=== PATIENT | male | born 1970 | race Caucasian/White ===

== ENCOUNTER 2016-09-26 20:44 | Emergency (ER) | payer SELFPAY ==
[2016-09-26 21:05] VITALS: BP 140/95
[2016-09-26] MEDS ORDERED: diPHENhydraMINE PO* 25 MG PO ONE (21:13)
--- NOTE | 2016-09-26 21:23 | UC ---
Skin Complaint HPI - HPI Summary HPI Summary: pt c/o o "insect bite" on right dorsal side of right wrist. Pt reports being outside this morning nd was beign bit by "black flies" . Pt noted that he had a bite on his right mid, wrist dorsal aspect that he "scratched" and made self inflicted abrasion. Pt then noticed that over several hours that his right wrist began to swell and that he has serous discharge from self inflicted abrasion with limited ROM secondary to swelling that is ~ 3 cm from insect bite. Pt denies angioedema or difficulty breathing. Pt has self inflicted abrasion that is ~ 1 cm in diameter. - History of Current Complaint Chief Complaint: UCSkin Time Seen by Provider: 09/26/16 21:05 Stated Complaint: insect bite/allergic reaction Hx Obtained From: Patient Onset/Duration: Gradual Onset, Lasting Hours Skin Exposure Onset/Duration: Hours Ago Timing: Constant Onset Severity: Mild Current Severity: Moderate Location: Discrete - righ twrist Character: Swelling Aggravating: Touch Alleviating: Unknown Associated Signs & Symptoms: Positive: Drainage - serous Related History: Insect Bite/Sting - black fly - Allergy/Home Medications Allergies/Adverse Reactions: Allergies Allergy/AdvReac Type Severity Reaction Status Date / Time Epinephrine Allergy had a Verified 09/26/16 21:06 heart attack after recieving for a bee sting Review of Systems Constitutional: Negative Skin: Other - swelling, abrasion, serous discharge Eyes: Negative ENT: Negative Respiratory: Negative Cardiovascular: Negative Gastrointestinal: Negative Genitourinary: Negative Motor: Decreased ROM - right wrist Neurovascular: Negative Musculoskeletal: Decreased ROM - right wrist, Edema Neurological: Negative Psychological: Negative All Other Systems Reviewed And Are Negative: Yes PMH/Surg Hx/FS Hx/Imm Hx Previously Healthy: Yes Cardiovascular History Of: Reports: Cardiac Disorders - [place] AGE 36 AFTER RECIEVING THE WRON DOSE OF EPE FOR BEE STING, Hypertension - DOES NOT TAKE HIS MED - Surgical History Surgical History: Yes Surgery Procedure, Year, and Place: RIGHT TOE FX WITH HARDWARE. SHOULDER SURGERY , APPENDECTOMY - Family History Known Family History: Positive: Other - positive [facility] for insect bite - Social History Alcohol Use: Occasionally Substance Use Type: None Smoking Status (MU): Current Every Day Smoker Type: Cigarettes Amount Used/How Often: 1 PPD Length of Time of Smoking/Using Tobacco: 29 YRS. Have You Smoked in the Last Year: Yes Household Exposure Type: Cigarettes Physical Exam Triage Information Reviewed: Yes Appearance: Well-Appearing Vital Signs: Initial Vital Signs Temp 97.9 F 09/26/16 20:58 Pulse 69 09/26/16 20:58 Resp 16 09/26/16 20:58 BP 140/95 09/26/16 20:58 Pulse Ox 97 09/26/16 20:58 Vital Signs Reviewed: Yes Eye Exam: Normal ENT Exam: Normal Neck exam: Normal Respiratory Exam: Normal Cardiovascular Exam: Normal Musculoskeletal Exam: Normal Musculoskeletal: Positive: ROM Limited @ - right wrist, Edema @ - right wrist, ~ 3 cm from insect bit that is 3 cm X 3 cm length Neurological Exam: Normal Psychological Exam: Normal Skin Exam: Other - ~ 1 cm self inflicted abrasion with scant amount of serous discharge Course/Dx - Differential Diagnoses - Skin Complaint Differential Diagnoses: Allergic Reaction, Cellulitis - Diagnoses Provider Diagnoses: insect bite allergic reaction. cellulitis Discharge - Discharge Plan Condition: Stable Disposition: HOME Prescriptions: Loratadine [Claritin 10 MG CAP] 10 mg PO DAILY #7 cap Sulfamethox/Trimethoprim DS* [Bactrim DS 800/160 TAB*] 1 tab PO BID #14 tab Patient Education Materials: Cellulitis (ED), Insect Bite or Sting (ED) Referrals: [facility] [Outside] No Primary Care Phys,NOPCP [Primary Care Provider] - If Needed
[2016-09-26] MEDS ORDERED: Sulfamethox/Trimethoprim DS 800/160* TAB PO ONE (21:29)
[2016-09-27] MEDS ORDERED: Sulfamethox/Trimethoprim DS 800/160* TAB PO ONE (21:14)
== END 2016-09-26 21:37 | disposition home or self-care (01) ==
LOC: UCCORT 20:44
DX: S60.861A Insect bite (nonvenomous) of right wrist, initial encounter (principal); L03.113 Cellulitis of right upper limb; W57.XXXA Bitten or stung by nonvenomous insect and other nonvenomous arthropods, initial encounter; Y93.9 Activity, unspecified; Y92.9 Unspecified place or not applicable; Z88.8 Allergy status to other drugs, medicaments and biological substances; I10 Essential (primary) hypertension; F17.210 Nicotine dependence, cigarettes, uncomplicated
CPT/HCPCS: 99202; A9270-GY; G0463

== ENCOUNTER 2017-08-04 21:18 | Emergency (ER) | payer BC, OTHER ==
[2017-08-04 21:45] VITALS: BP 128/81
[2017-08-04] MEDS ORDERED: Albuterol/Ipratropium NEB.SOL* Albuterol 2.5 MG/Ipratropium 0.5 MG 3 ML INH ONE ×2 (21:47→22:24)
[2017-08-04] MEDS ORDERED: Acetaminophen TAB* 325 MG PO ONE (22:06)
--- NOTE | 2017-08-04 22:07 | UC ---
Respiratory Complaint HPI - HPI Summary HPI Summary: 46 year old male with cough. Has had this before. cough, chest congestion. onset 4 days. cough is worse . sob. chills and headache. body and neck pain. weakness and dizziness. using neb at home and not much help. Has had this in the past when he coughed so hard he passed out and cut his nose. Today the cough is similar but not passed out. Still smoking but reduced with the current illness. No fever. The Sx worsened the passed 48 hours. No chest pain. Has had wheezing as well. - History of Current Complaint Chief Complaint: UCRespiratory Stated Complaint: UPPER RESP Time Seen by Provider: 08/04/17 21:46 Hx Obtained From: Patient Onset/Duration: Gradual Onset Timing: Constant Severity Initially: Mild Severity Currently: Moderate Pain Intensity: 8 Character: Cough: Nonproductive Associated Signs And Symptoms: Positive: Wheezing, URI, Nasal Congestion - Allergies/Home Medications Allergies/Adverse Reactions: Allergies Allergy/AdvReac Type Severity Reaction Status Date / Time epinephrine Allergy Severe had a Verified 08/04/17 21:50 heart attack after recieving med for a bee sting Home Medications: Home Medications Albuterol 2.5MG/3ML (0.083%)* [Ventolin 2.5 MG/3 ML NEB.[place]ERICA*] 2.5 mg INH Q4H PRN 08/04/17 [History Confirmed 08/04/17] D-Methorphan/PE/Acetaminophen [Cold Multi-Symptom Daytim] 1 tab PO PRN 08/04/17 [History] PMH/Surg Hx/FS Hx/Imm Hx Previously Healthy: Yes - Surgical History Surgical History: Yes Surgery Procedure, Year, and Place: RIGHT TOE FX WITH HARDWARE. SHOULDER SURGERY , APPENDECTOMY - Family History Known Family History: Positive: Other - positive [facility] for insect bite - Social History Occupation: Unemployed - Tr[employer] Lives: With Family Alcohol Use: None Substance Use Type: None Smoking Status (MU): Heavy Every Day Tobacco Smoker Type: Cigarettes Amount Used/How Often: 1 PPD Length of Time of Smoking/Using Tobacco: 29 YRS. Have You Smoked in the Last Year: Yes Household Exposure Type: Cigarettes Review of Systems Constitutional: Fatigue ENT: Nasal Discharge Respiratory: Shortness Of Breath, Cough Is Patient Immunocompromised?: No All Other Systems Reviewed And Are Negative: Yes Physical Exam Triage Information Reviewed: Yes Appearance: Well-Appearing, No Pain Distress, Well-Nourished Vital Signs: Initial Vital Signs Temp 98 F 08/04/17 21:37 Pulse 97 08/04/17 21:37 Resp 24 08/04/17 21:37 BP 128/81 08/04/17 21:37 Pulse Ox 95 08/04/17 21:37 Vital Signs Reviewed: Yes Eye Exam: Normal ENT Exam: Normal Dental Exam: Normal Neck exam: Normal Neck: Positive: 1 Respiratory Exam: Normal Respiratory: Positive: Chest non-tender, No respiratory distress, No accessory muscle use, Wheezing - RLL expiratory. Negative: Respiratory distress Cardiovascular Exam: Normal Musculoskeletal Exam: Normal Neurological Exam: Normal Psychological Exam: Normal Skin Exam: Normal UC Diagnostic Evaluation - Laboratory O2 Sat by Pulse Oximetry: 95 Re-Evaluation - Re-Evaluation First Eval Change: Improved - feels the duo neb helped and will give script Respiratory Course/Dx - Course Course Of Treatment: Flu A -- started with Sx > 3 days ago -- push fluids, cough meds, rest, if develop SOB then go to ED. O2 93-95% here on RA and speaking in complete sentences - Differential Dx/Diagnosis Provider Diagnoses: Flu A Discharge - Discharge Plan Condition: Good Disposition: HOME Prescriptions: Albuterol/Ipratropium NEB.[place]ER[place]* [Duoneb (Albuterol 2.5 MG/Ipratropium 0.5 MG)] 1 neb INH Q4H PRN #30 neb.soln PRN Reason: Cough Benzonatate CAP* [Tessalon 100 MG CAP*] 100 mg PO TID #20 cap Patient Education Materials: Influenza (ED) Referrals: William Yap DO [Primary Care Provider] - 4 Days Additional Instructions: As we discussed if your shortness of breath worsens or any other symptoms become concerning then go to the Emergency Room
== END 2017-08-04 22:34 | disposition home or self-care (01) ==
LOC: UCCORT 21:18
DX: J10.1 Influenza due to other identified influenza virus with other respiratory manifestations (principal); Z88.8 Allergy status to other drugs, medicaments and biological substances; F17.210 Nicotine dependence, cigarettes, uncomplicated
CPT/HCPCS: 87502; 99213; A9270-GY; G0463

== ENCOUNTER 2017-09-19 09:23 | Emergency (ER) | payer BC ==
[2017-09-19 10:17] VITALS: BP 127/88
--- NOTE | 2017-09-19 11:00 | ED ---
Skin Complaint - HPI Summary HPI Summary: 46 yr old male with the complaint of irritation, burning, oozing from his tattoo on his back. The tattoo was put on two weeks ago, and the day after the tattoo was put on he began to get itching, and some burning over the entire tattoo area. Over the past few days the rash that is surrounding the tattoo region is also appearing on the trunk and extremities and is also itchy. He denies fever, chills, malaise. He has no other complaints. He states his primary doctor is Dr Yap. - History of Current Complaint Chief Complaint: UCRash Time Seen by Provider: 09/19/17 10:21 Stated Complaint: SKIN COMPLAINT Pain Intensity: 8 - Allergy/Home Medications Allergies/Adverse Reactions: Allergies Allergy/AdvReac Type Severity Reaction Status Date / Time epinephrine Allergy Severe had a Verified 08/04/17 21:50 heart attack after recieving med for a bee sting Home Medications: Home Medications Neomycin/Bacitracin/Polymyxinb [Neosporin Ointment] 1 grams TOPICAL Q4H [History Confirmed 09/19/17] PMH/Surg Hx/FS Hx/Imm Hx Cardiovascular History: Reports: Hx Hypertension - DOES NOT TAKE HIS MED - Surgical History Surgery Procedure, Year, and Place: RIGHT TOE FX WITH HARDWARE. SHOULDER SURGERY , APPENDECTOMY Infectious Disease History: No Infectious Disease History: Denies: Traveled Outside the [place] in Last 30 Days - Family History Known Family History: Positive: Other - positive [facility] for insect bite - Social History Occupation: Employed Full-time Alcohol Use: None Substance Use Type: Reports: None Smoking Status (MU): Heavy Every Day Tobacco Smoker Type: Cigarettes Amount Used/How Often: 1 PPD Length of Time of Smoking/Using Tobacco: 29 YRS. Have You Smoked in the Last Year: Yes Review of Systems Negative: Fever, Chills Positive: Other - rash over tattoo and on body All Other Systems Reviewed And Are Negative: Yes Physical Exam Triage Information Reviewed: Yes Vital Signs On Initial Exam: Initial Vitals Temp Pulse Resp BP Pulse Ox 97.8 F 76 18 127/88 99 09/19/17 10:08 09/19/17 10:08 09/19/17 10:08 09/19/17 10:08 09/19/17 10:08 Vital Signs Reviewed: Yes Appearance: Positive: Well-Appearing, No Pain Distress Skin: Positive: Other - the tattoo is very large and with different colors on his back. It covers about 75 percent of his back. The areas that are with the most pigment dye appear to be oozing and skin is lichenified like dermatitis. He has multiple areas of red, lichen appearance around the rest of the tattoo as well as on the trunk and extremities. There is a slight malodorous smell from the oozing on the back. Overall this appears to be a hypersentivity reaction, and secondary cellulitis. Head/Face: Positive: Normal Head/Face Inspection Eyes: Positive: EOMI ENT: Positive: Normal ENT inspection Neck: Positive: Supple, Nontender Respiratory/Lung Sounds: Positive: Clear to Auscultation, Breath Sounds Present Cardiovascular: Positive: RRR. Negative: Murmur Abdomen Description: Negative: Distended Musculoskeletal: Positive: Strength/ROM Intact Neurological: Positive: Sensory/Motor Intact, Alert, Oriented to Person Place, Time, CN Intact II-III, Normal Gait, Speech Normal - [place] Coma Scale Best Eye Response: 4 - Spontaneous Best Motor Response: 6 - Obeys Commands Best Verbal Response: 5 - Oriented Coma Scale Total: 15 Diagnostics - Vital Signs Vital Signs Temp Pulse Resp BP Pulse Ox 09/19/17 10:08 97.8 F 76 18 127/88 99 - Laboratory Lab Statement: Any lab studies that have been ordered have been reviewed, and results considered in the medical decision making process. Course/Dx - Course Course Of Treatment: 46 yr old male with cellulitis, and hypersentitivity reaction to the tattoo dye. I have called Dr Yap and Dr Yap refuses to see the patient in follow up due to him discontinuing the patient from his practice on August 17, 2017 for failure to pay debt. I have given the patient [place] [facility]CP, and also have given script for medrol dose pack, and bactrim. Culture sent as well. Patient is to go to the ER for fever, chills, not feeling well or worsening symptoms. It is recommended at this point not to put anything further on the tattoo area. Only clean dressing or shirt at this point. Dressing was offered to the patient and he did not want the dressing. - Diagnoses Provider Diagnoses: Tattoo reaction, Cellulitis Discharge - Sign-Out/Discharge Documenting (check all that apply): Discharge/Admit/Transfer - Discharge Plan Condition: Good Disposition: HOME Prescriptions: methylPREDNISolone [Medrol Dosepak 4 MG*] 4 mg PO .SEE MARE INSTRUCTION #1 pkt Sulfamethox/Trimethoprim DS* [Bactrim DS 800/160 TAB*] 1 tab PO BID #20 tab Meds/Orders/Equipment: Wound/Misc Culture-Gram Stain Location: None Selected Patient Education Materials: Cellulitis (ED), Dermatitis (ED) Referrals: [facility] [Outside] - 2 Days William Yap DO [Primary Care Provider] - 2 Days - Billing Disposition and Condition Condition: GOOD Disposition: HOME
== END 2017-09-19 11:02 | disposition home or self-care (01) ==
LOC: UCCORT 09:23
DX: L03.312 Cellulitis of back [any part except buttock and flank] (principal); L81.8 Other specified disorders of pigmentation; F17.210 Nicotine dependence, cigarettes, uncomplicated; Z88.4 Allergy status to anesthetic agent
CPT/HCPCS: 87070; 87077; 87205; 99212; G0463

== ENCOUNTER 2018-01-18 10:35 | Emergency (ER) | payer BC ==
[2018-01-18 10:39] VITALS: BP 166/96
--- NOTE | 2018-01-18 11:07 | ED ---
Upper Extremity Pain - HPI Summary HPI Summary: Lt hand dominant pt present w/ lac to Lt thumb prior to arrival. He was pulling a piece of scrap metal from his truck when it slipped and he cut himself. Bleeding - controlled w/ pressure. Denies numbness, tingling, weakness. Imms are UTD. No pain control prior to arrival - achey - 5/10 pain now. No radiation from site. NOTE: BP elevated - pt denies HTN. Chart indicates he doesn't take meds. - History of Current Complaint Chief Complaint: EDLacSutureRecheck Stated Complaint: HAND LAC Time Seen by Provider: 01/18/18 10:45 Hx Obtained From: Patient - Allergies/Home Medications Allergies/Adverse Reactions: Allergies Allergy/AdvReac Type Severity Reaction Status Date / Time epinephrine Allergy Severe had a Verified 01/18/18 10:39 heart attack after recieving med for a bee sting PMH/Surg Hx/FS Hx/Imm Hx Previously Healthy: Yes Endocrine/Hematology History: Denies: Hx Anticoagulant Therapy, Hx Blood Disorders, Hx Diabetes, Autoimmune Disease Cardiovascular History: Reports: Hx Hypertension - DOES NOT TAKE HIS MED - Surgical History Surgery Procedure, Year, and Place: RIGHT TOE FX WITH HARDWARE. SHOULDER SURGERY , APPENDECTOMY - Immunization History Immunizations Up to Date: Yes Infectious Disease History: No Infectious Disease History: Denies: Traveled Outside the [place] in Last 30 Days - Family History Known Family History: Positive: Other - positive [facility] for insect bite - Social History Alcohol Use: None Substance Use Type: Reports: None Smoking Status (MU): Heavy Every Day Tobacco Smoker Type: Cigarettes Amount Used/How Often: 1 PPD Length of Time of Smoking/Using Tobacco: 29 YRS. Have You Smoked in the Last Year: Yes Review of Systems Positive: no symptoms reported Musculoskeletal: Negative Skin: Other - lac Neurological: Negative Psychological: Normal All Other Systems Reviewed And Are Negative: Yes Physical Exam Triage Information Reviewed: Yes Vital Signs On Initial Exam: Initial Vitals Temp Pulse Resp BP Pulse Ox 97.5 F 86 18 166/96 96 01/18/18 10:36 01/18/18 10:36 01/18/18 10:36 01/18/18 10:36 01/18/18 10:36 Vital Signs Reviewed: Yes Appearance: Positive: Well-Appearing, No Pain Distress, Obese Skin: Positive: Warm, Skin Color Reflects Adequate Perfusion - lac Head/Face: Positive: Normal Head/Face Inspection Eyes: Positive: EOMI ENT: Positive: Hearing grossly normal Respiratory/Lung Sounds: Positive: Breath Sounds Present Cardiovascular: Positive: Pulses are Symmetrical in both Upper and Lower Extremities Musculoskeletal: Positive: Normal, Strength/ROM Intact Neurological: Positive: Normal, Sensory/Motor Intact, Alert, Oriented to Person Place, Time Psychiatric: Positive: Normal Procedures - Laceration/Wound Repair 1 Location: upper extremity - Lt thumb Description: Linear - 3cm x 3mm Anesthesia: Local, 1.0%, Lido, Bicarb Length, Depth and Shape: 3cm x 3mm Betadine Prep?: Yes Irrigated w/ Saline (ccs): 100 Laceration/Wound Explored: contaminated - small metal flakes - removed manually Closure: Single Layer Suture Type: Other - ethilon 5-0 Number of Sutures: 7 Layer Closure?: No Sterile Dressing Applied?: Yes - triple anbx ointment + gauze + AGUEDA - hemodyn stable Diagnostics - Vital Signs Vital Signs Temp Pulse Resp BP Pulse Ox 01/18/18 10:36 97.5 F 86 18 166/96 96 - Laboratory Lab Statement: Any lab studies that have been ordered have been reviewed, and results considered in the medical decision making process. Course/Dx - Course Course Of Treatment: Preformed by ULYSSES Alves - observed by Cielo Bustamante PA-C. Appropriate technique and good hemostasis. Pt tolerated well. - Diagnoses Provider Diagnoses: Laceration of left thumb Discharge - Sign-Out/Discharge Documenting (check all that apply): Patient Departure - Discharge Plan Condition: Stable Disposition: HOME Patient Education Materials: Laceration (ED), Care For Your Stitches (ED), Hypertension (ED) Forms: *Work Release Referrals: [facility] [Outside] Additional Instructions: Keep Dressing clean and dry and in place for the next 48 hours. After that time you may remove dressing, gently wash wound with soap and water, rinse well and pat dry with clean cloth. Reapply triple antibiotic ointment and clean gauze dressing. Continue this daily until sutures are removed. Call your PCP ( Fredy Patel) to schedule wound recheck and suture removal in 10-14 days. Call today to schedule appointment. Rest, ice, elevate, and may take ibuprofen as needed for pain * If you develop redness, swelling, streaking, purulent drainage, fevers or chills, seek medical attention sooner or return to the emergency department. NOTE: Your blood presure was elevated. Make sure to have this rechecked by [facility] at your follow-up appointment. If this continues to be elevated, you may require medication. In the meantime, you may address this with lifestyle choices such as reduced salt intake, exercise, stress management, etc. *If in the meantime you develop chest pain, change in vision, shortness of breath, jaw pain, weakness, return to ED - Billing Disposition and Condition Condition: STABLE Disposition: Home
[2018-01-18] MEDS ORDERED: Ibuprofen TAB* 600 MG PO ONE (11:08)
[2018-01-18] MEDS ORDERED: Sodium Bicarbonate 8.4% SYR* 10 ML SYRINGE IV ONE (11:09)
== END 2018-01-18 12:57 | disposition home or self-care (01) ==
LOC: ED 10:35
DX: S61.022A Laceration with foreign body of left thumb without damage to nail, initial encounter (principal); W26.8XXA Contact with other sharp object(s), not elsewhere classified, initial encounter; Y92.9 Unspecified place or not applicable; F17.210 Nicotine dependence, cigarettes, uncomplicated; Z88.8 Allergy status to other drugs, medicaments and biological substances
CPT/HCPCS: 12042; 99282; A9270-GY